=== PATIENT | male | born 1975 | race African-American/Black ===

== ENCOUNTER → 2021-03-01 09:11 | Outpatient (CLI) | payer OTHER, SELFPAY | PROVIDERS: PCP Registered Nurse; Referring Provider Registered Nurse; Visit Provider Family Medicine | DX: E11.621 Type 2 diabetes mellitus with foot ulcer (principal); L97.522 Non-pressure chronic ulcer of other part of left foot with fat layer exposed; E11.40 Type 2 diabetes mellitus with diabetic neuropathy, unspecified; L08.9 Local infection of the skin and subcutaneous tissue, unspecified | CPT/HCPCS: 11042; 99204; 99213 ==

== ENCOUNTER → 2021-03-01 10:56 | Outpatient (CLI) | payer OTHER, SELFPAY ==
[2021-03-01 12:16] LABS: Add Manual Diff / Slide Review NO; Basophils Absolute Auto 100 /uL (0-100); Eosinophils Absolute Auto 100 /uL (0-450); Eosinophils Percent Auto 2.2 % (2-4); Hematocrit 48.3 % (41-53); Hemoglobin 16.7 g/dL (13.5-17.5); Lymphocytes Absolute Auto 2300 /uL (1100-4500); Lymphocytes Percent Auto 33.6 % (25-40); Mean Corpuscular HGB Conc 34.5 % (30-36); Mean Corpuscular Hemoglobin 31.1 PG (26-34); Mean Corpuscular Volume 90.3 fL (80-100); Monocytes Absolute Auto 600 /uL (0-900); Monocytes Percent Auto 8.4 % (3-14); Neutrophils Absolute Auto 3800 /uL (1500-7000); Neutrophils Percent Auto 54.8 % (50-75); Platelet Count 257 X10^3/uL (150-400); Red Blood Cell Count 5.35 X10^6/uL (4.5-5.9); Red Cell Distribution Width 13.1 % (11.6-14.8)
[2021-03-01 12:27] LABS: Hemoglobin A1C% w Est Avg Glu 8.6 % (4.0-6.0)
[2021-03-01 12:30] LABS: Alanine Aminotransferase 25 IU/L (<50); Albumin 4.6 g/dL (3.5-5.0); Albumin Globulin Ratio 1.5 (1.0-2.8); Alkaline Phosphatase 59 U/L (38-126); Aspartate Aminotransferase 24 IU/L (17-59); BUN Creatinine Ratio 13.3 (6-22); Bilirubin Total 0.6 mg/dL (0.2-1.3); Blood Urea Nitrogen 10 mg/dL (9-20); C-Reactive Protein Quant < 0.5 mg/dL (<1.0); Carbon Dioxide 25 mmol/L (22-32); Chloride 103 mmol/L (98-107); Estimated Glomerular Filt Rate > 60.0 mL/min (>60); Glucose 259 mg/dL (70-100); HEMOLYSIS < 15 (0-50); Potassium 4.5 mmol/L (3.4-5.1); Sodium 135 mmol/L (137-145); Total Protein 7.6 g/dL (6.3-8.2)
[2021-03-01 12:34] LABS: Erythrocyte Sedimentation Rate 1 MM/HR (0-15)
[2021-03-01 12:35] LABS: Prealbumin 23.2 mg/dL (17.6-36.0)
== END ==
PROVIDERS: PCP Registered Nurse; Referring Provider Family Medicine; Visit Provider Family Medicine
DX: L08.9 Local infection of the skin and subcutaneous tissue, unspecified (principal); E11.621 Type 2 diabetes mellitus with foot ulcer
CPT/HCPCS: 36415; 80053; 83036; 84134; 85025; 85651; 86140

== ENCOUNTER → 2021-03-08 10:53 | Outpatient (CLI) | payer OTHER, SELFPAY | PROVIDERS: PCP Registered Nurse; Referring Provider Registered Nurse; Visit Provider Family Medicine | DX: E11.621 Type 2 diabetes mellitus with foot ulcer (principal); L97.522 Non-pressure chronic ulcer of other part of left foot with fat layer exposed; E11.40 Type 2 diabetes mellitus with diabetic neuropathy, unspecified; L08.9 Local infection of the skin and subcutaneous tissue, unspecified; Z79.2 Long term (current) use of antibiotics | CPT/HCPCS: 11042; 99214 ==

== ENCOUNTER → 2021-03-16 15:54 | Outpatient (CLI) | payer OTHER, SELFPAY | PROVIDERS: PCP Registered Nurse; Referring Provider Registered Nurse; Visit Provider Family Medicine | DX: E11.621 Type 2 diabetes mellitus with foot ulcer (principal); L97.521 Non-pressure chronic ulcer of other part of left foot limited to breakdown of skin; E11.40 Type 2 diabetes mellitus with diabetic neuropathy, unspecified; L08.9 Local infection of the skin and subcutaneous tissue, unspecified; Z79.2 Long term (current) use of antibiotics | CPT/HCPCS: 97597 ==

== ENCOUNTER → 2021-03-28 14:09 | Outpatient (CLI) | payer OTHER, SELFPAY | PROVIDERS: PCP Registered Nurse; Referring Provider Registered Nurse; Visit Provider Family Medicine | DX: E11.40 Type 2 diabetes mellitus with diabetic neuropathy, unspecified (principal); Z87.2 Personal history of diseases of the skin and subcutaneous tissue | CPT/HCPCS: 99212; 99213 ==

== ENCOUNTER → 2021-09-22 14:50 | Outpatient (CLI) | payer OTHER, SELFPAY | PROVIDERS: PCP Registered Nurse; Referring Provider Registered Nurse; Visit Provider Family Medicine | DX: E11.621 Type 2 diabetes mellitus with foot ulcer (principal); L97.522 Non-pressure chronic ulcer of other part of left foot with fat layer exposed; L84 Corns and callosities; E11.40 Type 2 diabetes mellitus with diabetic neuropathy, unspecified; Z79.4 Long term (current) use of insulin | CPT/HCPCS: 11042; 99213; 99214 ==

== ENCOUNTER → 2021-10-03 06:53 | Outpatient (CLI) | payer OTHER, SELFPAY ==
--- NOTE | 2021-10-03 | DI.MRI.S_ITS ---
PROCEDURE: MRFOOT LT WO CON INDICATIONS: EVAL FOR OSTEOMYLITIS BASE OF L PROX PHALANX TECHNIQUE: Noncontrast sagittal T1 spin echo and T2 fast spin echo with fat saturation, long-axis T1 spin echo and T2 fast spin echo with fat saturation, short-axis T1 spin echo and T2 fast spin echo with fat saturation through the forefoot. COMPARISON: None. FINDINGS: Image quality: Excellent. Bones and joints: Chronic remodeling or erosion is seen along the medial aspect of the distal 1st metatarsal. No adjacent osseous edema is seen. Mild irregularity of the hallux sesamoids is seen without acute edema. Mild degenerative changes of the 1st metatarsophalangeal joint without a significant effusion. Mild scattered degenerative changes are seen in the interphalangeal joints of the toes. No acute trabecular bone injury. Soft tissues: A masslike lesion is seen along the medial plantar aspect of the distal 1st metatarsal measuring 3.7 x 2.4 x 2.2 cm, which is hypointense on T1-weighted and T2-weighted images. There is mild fatty infiltration of the intrinsic foot muscles that may be related to chronic denervation changes. Visualized flexor and extensor tendons appear intact, without tenosynovitis. The distal insertions of the peroneus brevis and longus tendons appear intact. The principal Lisfranc ligament appears intact. No soft tissue ganglion cysts or bursal fluid collections. Sagittal images demonstrate no evidence for plantar plate tears. IMPRESSION: 1. Hypointense 3.7 cm masslike lesion at the plantar medial aspect of the foot adjacent to the distal 1st metatarsal. There is chronic remodeling or chronic pressure erosion of the adjacent medial 1st metatarsal. Differential considerations include a gouty tophus or tenosynovial giant cell tumor among other etiologies. Recommend correlation with history and clinical exam findings as well as conventional radiographs. 2. No signs of acute soft tissue infection or osteomyelitis. 3. Mild degenerative changes of the 1st metatarsophalangeal joint and interphalangeal joints of the toes. Dictated by: Evens Hsieh M.D. on 10/03/2021 at 11:51 Approved by: Evens Hsieh M.D. on 10/03/2021 at 12:03
== END ==
PROVIDERS: PCP Registered Nurse; Referring Provider Family Medicine; Visit Provider Family Medicine
DX: E11.621 Type 2 diabetes mellitus with foot ulcer (principal); L97.529 Non-pressure chronic ulcer of other part of left foot with unspecified severity
CPT/HCPCS: 73720; A9579

== ENCOUNTER → 2021-10-03 10:19 | Outpatient (CLI) | payer OTHER, SELFPAY | PROVIDERS: PCP Registered Nurse; Referring Provider Registered Nurse; Visit Provider Family Medicine | DX: L84 Corns and callosities (principal); E11.40 Type 2 diabetes mellitus with diabetic neuropathy, unspecified; R22.42 Localized swelling, mass and lump, left lower limb; E11.621 Type 2 diabetes mellitus with foot ulcer; L97.529 Non-pressure chronic ulcer of other part of left foot with unspecified severity; Z79.4 Long term (current) use of insulin; Z86.31 Personal history of diabetic foot ulcer | CPT/HCPCS: 73720; 99213; A9579 ==

== ENCOUNTER → 2022-04-19 13:29 | Outpatient (CLI) | payer OTHER, SELFPAY | PROVIDERS: PCP Registered Nurse; Referring Provider Registered Nurse; Visit Provider Surgery | DX: E11.621 Type 2 diabetes mellitus with foot ulcer (principal); L97.522 Non-pressure chronic ulcer of other part of left foot with fat layer exposed; E11.40 Type 2 diabetes mellitus with diabetic neuropathy, unspecified | CPT/HCPCS: 11042; 73630; 87070; 87205; 99213 ==

== ENCOUNTER → 2022-04-19 14:08 | Outpatient (CLI) | payer OTHER, SELFPAY ==
--- NOTE | 2022-04-19 14:11 | DI.RAD.S_ITS ---
PROCEDURE: XR FOOT LT MIN 3V INDICATIONS: wound to left hallux TECHNIQUE: 3 views of the foot were acquired. COMPARISON: [facility], MR, MR FOOT LT WO CON, 10/03/2021, 7:45. FINDINGS: Bones: No fractures or dislocations. Subtle bony erosion at the base of 1st proximal fine. There is degenerative joint disease in ankle and foot, involving intertarsal joints, tarsometatarsal joints, the 1st metatarsophalangeal joint and multiple interphalangeal joints. Moderate degenerative joint disease Calcaneal spurring. Soft tissues: No tibiotalar joint effusion. Achilles tendon appears normal. Soft tissue swelling in the 1st toe and adjacent to the distal 1st distal metatarsal. IMPRESSION: Subtle bony erosion at the base of the 1st proximal phalanx. Osteomyelitis is a diagnostic consideration. Recommend clinical correlation. Dictated by: Denise Flores M.D. on 04/19/2022 at 16:56 Approved by: Denise Flores M.D. on 04/19/2022 at 17:00
== END ==
PROVIDERS: PCP Registered Nurse; Referring Provider Surgery; Visit Provider Surgery
DX: E11.621 Type 2 diabetes mellitus with foot ulcer (principal)
CPT/HCPCS: 73630

== ENCOUNTER → 2022-04-24 15:00 | Outpatient (CLI) | payer OTHER, SELFPAY | PROVIDERS: PCP Registered Nurse; Referring Provider Registered Nurse; Visit Provider Surgery | DX: E11.621 Type 2 diabetes mellitus with foot ulcer (principal); L97.522 Non-pressure chronic ulcer of other part of left foot with fat layer exposed; L84 Corns and callosities; E11.42 Type 2 diabetes mellitus with diabetic polyneuropathy; R22.42 Localized swelling, mass and lump, left lower limb | CPT/HCPCS: 11042; 99213 ==

== ENCOUNTER → 2022-05-01 15:14 | Outpatient (CLI) | payer OTHER, SELFPAY | LOC: WC 15:15 | PROVIDERS: PCP Registered Nurse; Referring Provider Registered Nurse; Visit Provider Surgery | DX: E11.40 Type 2 diabetes mellitus with diabetic neuropathy, unspecified (principal); Z86.31 Personal history of diabetic foot ulcer | CPT/HCPCS: 99213 ==

== ENCOUNTER → 2022-05-08 11:05 | Outpatient (CLI) | payer OTHER, SELFPAY | PROVIDERS: PCP Registered Nurse; Referring Provider Registered Nurse; Visit Provider Surgery | DX: Z86.31 Personal history of diabetic foot ulcer (principal) | CPT/HCPCS: 99211; 99212 ==

== ENCOUNTER → 2022-05-29 11:49 | Outpatient (CLI) | payer OTHER, SELFPAY ==
--- NOTE | 2022-05-29 | DI.MRI.S_ITS ---
PROCEDURE: MR FOOT RT WO/W CON INDICATIONS: right foot pains TECHNIQUE: Noncontrast sagittal T1 spin echo and T2 fast spin echo with fat saturation, long-axis T1 spin echo and T2 fast spin echo with fat saturation; short-axis T1 spin echo, proton density fast spin echo, and T2 fast spin echo with fat saturation through the forefoot. Post-contrast short axis, long axis, and sagittal T1 spin echo with fat saturation through the forefoot. COMPARISON: None. FINDINGS: Image quality: Excellent. Bones and joints: No suspicious osseous enhancement. No bone marrow contusions or metatarsal stress fractures. The sesamoid bones appear in expected positions. Mild metatarsal sesamoid degenerative changes are present. Mild degenerative changes at the 1st metatarsophalangeal joint and scattered throughout the interphalangeal joints of the toes. No intraosseous lesions. Soft tissues: No enhancing soft tissue mass. The visualized plantar foot muscles demonstrate mild diffuse fatty infiltration, which is most likely related to chronic denervation changes. Visualized flexor and extensor tendons appear intact, without tenosynovitis. The distal insertions of the peroneus brevis and longus tendons appear intact. The principal Lisfranc ligament appears intact. No soft tissue ganglion cysts or bursal fluid collections. Sagittal images demonstrate no evidence for plantar plate tears. IMPRESSION: 1. No acute trabecular bone injury. No significant ligament or tendon injury is seen. 2. Mild degenerative changes at the 1st metatarsophalangeal joint and metatarsal sesamoid articulations and scattered throughout the toes. 3. Grade 2 fatty infiltration of the intrinsic foot musculature is most likely related to mild chronic denervation changes. 1. Approved by: Evens Hsieh M.D. on 06/02/2022 at 11:08
== END ==
PROVIDERS: PCP Registered Nurse; Referring Provider Surgery; Visit Provider Surgery
DX: E11.621 Type 2 diabetes mellitus with foot ulcer (principal); M79.671 Pain in right foot
CPT/HCPCS: 73720; A9579

== ENCOUNTER → 2022-06-05 11:53 | Outpatient (CLI) | payer OTHER, SELFPAY ==
--- NOTE | 2022-06-05 11:54 | DI.MRI.S_ITS ---
PROCEDURE: MR FOOT LT WO/W CON INDICATIONS: Follow up of mass medial left foot and to help r/o osteo TECHNIQUE: Noncontrast sagittal T1 spin echo and T2 fast spin echo with fat saturation, long-axis T1 spin echo and T2 fast spin echo with fat saturation; short-axis T1 spin echo, proton density fast spin echo, and T2 fast spin echo with fat saturation through the forefoot. Post-contrast short axis, long axis, and sagittal T1 spin echo with fat saturation through the forefoot. COMPARISON: [facility], MR, MR FOOT LT WO CON, 10/03/2021, 7:45. [facility], MR, MR FOOT RT WO/W CON, 05/29/2022, 11:56. [facility], CR, XR FOOT LT MIN 3V, 04/19/2022, 14:11. FINDINGS: Image quality: Excellent. Bones and joints: Again noted is a chronic remodeling/erosion seen along the medial aspect of the distal 1st metatarsal. The marrow signal in the metatarsal remains within normal limits. Mild osteoarthritic type degenerative change involving the 1st metatarsophalangeal joint is unchanged. Marrow signal remainder of the osseous structures appears within normal limits. No significant joint effusion is seen. Soft tissues: The previously noted soft tissue mass along the medial plantar aspect of the distal 1st metatarsal is relatively stable in size from the prior examination measuring 3 x 3 x 2.4 cm in maximal dimension previously measuring 3.7 cm maximally. Given the lack of significant interval change this may represent a gouty tophus. Giant cell tumor or synovial cell sarcoma are felt to be much less likely given the lack of interval change. The lesion again does show some contrast enhancement. Mild fatty infiltration of the intrinsic muscles of the foot remains stable. Visualized flexor and extensor tendons appear intact, without tenosynovitis. The distal insertions of the peroneus brevis and longus tendons appear intact. The principal Lisfranc ligament appears intact. No soft tissue ganglion cysts or bursal fluid collections. Sagittal images demonstrate no evidence for plantar plate tears. IMPRESSION: 1. Previously noted lesion along the medial aspect of the distal 1st metatarsal appears stable in size in appearance from prior examination. Again this may represent a gouty tophus. Given lack of interval change other etiologies sets as giant cell tumor or synovial cell sarcoma are felt to be much less likely. 2. No evidence for osteomyelitis. 3. Mild osteoarthritic type degenerative change 1st metatarsophalangeal joint. Dictated by: José Luis Ventura M.D. on 06/05/2022 at 12:58 Approved by: José Luis Ventura M.D. on 06/05/2022 at 13:36
== END ==
PROVIDERS: PCP Registered Nurse; Referring Provider Surgery; Visit Provider Surgery
DX: E11.621 Type 2 diabetes mellitus with foot ulcer (principal); R22.42 Localized swelling, mass and lump, left lower limb
CPT/HCPCS: 73720; A9579

== ENCOUNTER → 2022-12-04 12:02 | Outpatient (CLI) | payer OTHER, SELFPAY ==
--- NOTE | 2022-12-04 12:04 | DI.MRI.S_ITS ---
PROCEDURE: MR KNEE RT WO CON INDICATIONS: Unspecified internal derangement of right knee TECHNIQUE: Noncontrast sagittal PD fast spin echo and T2 fast spin echo with fat saturation, sagittal 3-D FLASH with fat saturation; coronal T1 spin echo and PD fast spin echo with fat saturation, and axial PD fast spin echo with fat saturation through the knee. COMPARISON: [facility] [place], CR, XR KNEE STANDING BILATERAL, 11/22/2022, 16:52. FINDINGS: Image quality: Excellent. Menisci: Medial meniscus is intact. There is vague linear oblique and amorphous high signal intensity within the lateral meniscal body and anterior horn, demonstrating inferior articular surface extension. Cruciate ligaments: The anterior and posterior cruciate ligaments appear intact. Medial structures: The medial collateral ligament appears intact. Visualized portions of the pes anserinus tendons appear normal. No abnormal bursal fluid. Lateral structures: The lateral collateral ligament, long and short heads of the biceps femoris tendon appear intact. The popliteus tendon appears normal. Iliotibial band appears normal. Anterior structures: The quadriceps and patellar tendons appear intact. Mild T2 signal elevation within the patellar tendon at the patellar insertion site Lateral patellar subluxation. Lateral ventral trochlear prominence is present. Moderate edema in the superolateral aspect of the infrapatellar fat pad. Bones and cartilage: No bone marrow contusions or fractures. There is a full-thickness articular cartilage defect overlying the mid/posterior weight-bearing aspect of the lateral femoral condyle, spanning roughly 20 mm anteroposterior. Articular cartilage fibrillation overlies the medial patellar facet. Moderate articular cartilage loss overlies the lateral patellar facet inferiorly. Joint space: There is physiologic knee joint fluid. Small Hart's cyst. Normal appearing synovial plicae are incidentally noted. IMPRESSION: 1. Findings suggestive of a subtle tear of the lateral meniscus. 2. Findings consistent with lateral patellofemoral friction syndrome in the appropriate clinical setting. 3. Tricompartmental osteoarthritis with associated articular cartilage loss as above. 4. Patellar tendinitis. Dictated by: Jonathon Talbert M.D. on 12/04/2022 at 13:50 Approved by: Jonathon Talbert M.D. on 12/04/2022 at 13:55
== END ==
PROVIDERS: PCP Registered Nurse; Referring Provider Orthopaedic Surgery Foot and Ankle Surgery; Visit Provider Orthopaedic Surgery Foot and Ankle Surgery
DX: M23.91 Unspecified internal derangement of right knee (principal); M17.11 Unilateral primary osteoarthritis, right knee; M76.51 Patellar tendinitis, right knee
CPT/HCPCS: 73721